=== PATIENT | female | born 1980 | race African-American/Black ===

== ENCOUNTER 2021-07-21 07:37 | Emergency (ER) | payer SELFPAY ==
--- NOTE | 2021-07-21 08:02 | ER ---
Nurse's Notes [facility] Name: Ana Schmidt Age: 41 yrs Sex: Female : 1980 Arrival Date: 07/21/2021 Time: 07:39 Bed 15 Private MD: Diagnosis: Dental alveolar anomalies Presentation: 07/21 07:41 Chief complaint: Patient states: "I have a tooth that has been broken but it's been aa5 very painful for about 3 days now and I can't take it anymore". 07:41 Method Of Arrival: Ambulatory aa5 07:41 Coronavirus screen: At this time, the client does not indicate any symptoms associated aa5 with coronavirus-19. Ebola Screen: Patient negative for fever greater than or equal to 101.5 degrees Fahrenheit, and additional compatible Ebola Virus Disease symptoms. Initial Sepsis Screen: Does the patient meet any 2 criteria? No. Patient's initial sepsis screen is negative. Does the patient have a suspected source of infection? No. Patient's initial sepsis screen is negative. Risk Assessment: Do you want to hurt yourself or someone else? Patient reports no desire to harm self or others. Onset of symptoms was July 2021. 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 - Social history:: Smoking status: Patient reports the use of cigarette tobacco products. Screenin:55 Abuse screen: Denies threats or abuse. Denies injuries from another. Nutritional tc5 screening: No deficits noted. Tuberculosis screening: No symptoms or risk factors identified. Fall Risk None identified. Assessment: 07:54 General: Appears distressed, Behavior is calm, cooperative, appropriate for age, Right tc5 side dental pain x 3 days, 07/13.has chipped tooth that occasionally causes pain there.. Pain: Complains of pain in right jaw. Vital Signs: 07:41 BP 156 / 95; Pulse 83; Resp 16 S; Temp 97.6(TE); Pulse Ox 100% on R/A; aa5 08:12 BP 130 / 67; Pulse 74; Resp 18; Pulse Ox 100% ; Pain 0/10; tc5 ED Course: 07:39 Patient arrived in ED. ds1 07:41 Sumi Guillory, RN is Primary Nurse. tc5 07:41 Arm band placed on Patient placed in an exam room, on a stretcher. aa5 07:46 Chauncey Siegel MD is Attending Physician. sp3 07:47 Triage completed. aa5 08:01 Brenden Rodgers DDS is Referral Physician. sp3 08:12 No provider procedures requiring assistance completed. tc5 08:13 Patient has correct armband on for positive identification. Bed in low position. Call tc5 light in reach. Administered Medications: 08:04 Drug: Marcaine (bupivacaine) (0.5 %) 1 vials {Note: Gave to Khadar KERNS for tc5 administration..} Volume: 10 ml; Route: Infiltration; 08:11 Follow up: Response: No adverse reaction tc5 Outcome: 08:02 Discharge ordered by . sp3 08:12 Discharged to home tc5 08:12 Condition: stable 08:12 Condition: stable 08:12 Discharge instructions given to patient. 08:13 Patient left the ED. tc5 Signatures: Skylar Omer ds1 Lucia Rider, RN RN aa5 Chauncey Siegel MD MD sp3 Sumi Guillory, LIOR RN tc5
--- NOTE | 2021-07-21 08:03 | EDPHYS ---
Physician Documentation [facility] Name: Ana Schmidt Age: 41 yrs Sex: Female : 1980 Arrival Date: 07/21/2021 Time: 07:39 Bed 15 Private MD: ED Physician Chauncey Siegel HPI: 07/21 07:57 This 41 yrs old Black Female presents to ER via Ambulatory with complaints of Dental sp3 Pain. 07:57 41-year-old female with no significant past medical history presents with 3-day onset sp3 of right sided superior dental pain. She states that she is out of town and does not have a local dentist. She had prior dental work done in [place]. She denies any fever, facial swelling, difficulty swallowing, shortness of breath, any other findings on ROS at this time. Remainder of ROS is negative. Patient states that she is taking ibuprofen which has significantly helped. She is asking for a "needle in the mouth" for continued symptoms.. 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 - Social history:: Smoking status: Patient reports the use of cigarette tobacco products. ROS: 07:58 Constitutional: Negative for fever, chills, and weight loss, Eyes: Negative for injury, sp3 pain, redness, and discharge, Neck: Negative for injury, pain, and swelling, Cardiovascular: Negative for chest pain, palpitations, and edema, Respiratory: Negative for shortness of breath, cough, wheezing, and pleuritic chest pain, Abdomen/GI: Negative for abdominal pain, nausea, vomiting, diarrhea, and constipation, Skin: Negative for injury, rash, and discoloration. Exam: 07:59 Constitutional: This is a well developed, well nourished patient who is awake, alert, sp3 and in no acute distress. Eyes: Pupils equal round and reactive to light, extra-ocular motions intact. Lids and lashes normal. Conjunctiva and sclera are non-icteric and not injected. Cornea within normal limits. Periorbital areas with no swelling, redness, or edema. ENT: Nares patent. No nasal discharge, no septal abnormalities noted. External auditory canals are clear. Oropharynx with no redness, swelling, or masses, exudates, or evidence of obstruction, uvula midline. Mucous membranes moist. Neck: Trachea midline, no thyromegaly or masses palpated, and no cervical lymphadenopathy. Supple, full range of motion without nuchal rigidity, or vertebral point tenderness. No Meningismus. Chest/axilla: Normal chest wall appearance and motion. Nontender with no deformity. No lesions are appreciated. Cardiovascular: Regular rate and rhythm with a normal S1 and S2. No gallops, murmurs, or rubs. Normal PMI, no JVD. No pulse deficits. Respiratory: Lungs have equal breath sounds bilaterally, clear to auscultation and percussion. No rales, rhonchi or wheezes noted. No increased work of breathing, no retractions or nasal flaring. 07:59 ENT: Multiple broken and fractured teeth in the superior aspect of the right mouth. Patient has gold gross on the front teeth. No other swelling or signs of abscess noted. Pain is likely nerve related but I will start antibiotics empirically. Patient was told that she needed to see a dentist. Patient will get alveolar nerve block by nurse practitioner.. 07:59 ENT: Vital Signs: 07:41 BP 156 / 95; Pulse 83; Resp 16 S; Temp 97.6(TE); Pulse Ox 100% on R/A; aa5 08:12 BP 130 / 67; Pulse 74; Resp 18; Pulse Ox 100% ; Pain 0/10; tc5 MDM: 07:48 Patient medically screened. sp3 08:01 Data reviewed: vital signs, nurses notes. ED course: Pain is likely nerve related but I sp3 will start antibiotics empirically. Patient was told that she needed to see a dentist. Patient will get alveolar nerve block by nurse practitioner.. Administered Medications: 08:04 Drug: Marcaine (bupivacaine) (0.5 %) 1 vials {Note: Gave to Khadar KERNS for tc5 administration..} Volume: 10 ml; Route: Infiltration; 08:11 Follow up: Response: No adverse reaction tc5 Disposition Summary: 07/21/21 08:02 Discharge Ordered Location: Home sp3 Condition: Stable sp3 Diagnosis - Dental alveolar anomalies sp3 Followup: sp3 - With: Private Physician - When: - Reason: Re-evaluation by your physician Followup: sp3 - With: Brenden Rodgers DDS - When: Upon discharge from the Emergency Department - Reason: Discharge Instructions: - Discharge Summary Sheet sp3 - Dental Pain sp3 Forms: - Medication Reconciliation Form sp3 - Thank You Letter sp3 - Antibiotic Education sp3 - Prescription Opioid Use sp3 Prescriptions: - Augmentin 875-125 mg Oral Tablet - take 1 tablet by ORAL route every 12 hours for 10 days; 20 tablet; Refills: 0, sp3 Product Selection Permitted - Diclofenac Sodium 75 mg Oral tablet,delayed release (DR/EC) - take 1 tablet by ORAL route 2 times per day; 30 tablet; Refills: 0, Product sp3 Selection Permitted Signatures: Lucia Rider, RN RN aa5 Khadar Bee PA PA [id number] Chauncey Siegel MD MD sp3 Sumi Guillory RN RN tc5
[2021-07-21 08:23] VITALS: TEMP 97.6; O2SAT 100
[2021-07-21 08:24] VITALS: BP 130/67
== END 2021-07-21 08:13 | disposition home or self-care (01) ==
LOC: ER 07:37
DX: M26.70 Unspecified alveolar anomaly (principal); Z72.0 Tobacco use
CPT/HCPCS: 99283